=== PATIENT | female | born 1980 | race Caucasian/White ===

== ENCOUNTER 2016-08-17 14:57 | Emergency (ER) | payer MEDICAID ==
[~2016-08-17] VITALS: Ht 165.1 cm; Wt 73.0 kg
[2016-08-17 15:00] VITALS: Ht 165.1 cm; Wt 73.0 kg
[2016-08-17] MEDS ORDERED: KETOROLAC 60 MG INJ IM STA (15:58)
--- NOTE | 2016-08-17 17:18 | RADRPT ---
PROCEDURE: XR Chest. CLINICAL INDICATION: Chest pain. TECHNIQUE: Portable AP semi erect view of the chest was obtained. COMPARISON: None. FINDINGS: The cardiomediastinal silhouette is within normal limits. The lungs are clear. There is no evidenc e for pleural effusion, pneumothorax or pulmonary vascular congestion. The osseous structures are i ntact with no evidence for acute abnormality. RPTAT:HJJR IMPRESSION: No evidence for acute intrathoracic pathology. Physician Myah Date Time Electronically viewed and signed by Physician Myah on 08/17/2016 17:18 JR/
--- NOTE | 2016-08-17 17:19 | RADRPT ---
PROCEDURE: XR shoulder. CLINICAL INDICATION: Pain TECHNIQUE: Two views of the left shoulder were performed. COMPARISON: None available. FINDINGS: There is normal mineralization and alignment. No fracture or osseous lesion is identified. The joint spaces are preserved. The soft tissues are unremarkable. RPTAT:HJJR IMPRESSION: Unremarkable left shoulder series. Physician Myah Date Time Electronically viewed and signed by Preet Kline Physician on 08/17/2016 17:18 JR/
--- NOTE | 2016-08-17 19:30 | RADRPT ---
PROCEDURE: Ultrasound left breast CLINICAL INDICATION: Left breast pain TECHNIQUE: Real time sonographic imaging of the left breast is performed in an [id number] ma nner with additional images of the retroareolar and axillary regions of pain. Additional imaging of the right breast is obtained for comparison purposes, a total of 25 static images sent to the PACS for review COMPARISON: None available FINDINGS: Normal symmetric subcutaneous tissue and breast parenchyma is identified. There is no evidence of s olid or cystic mass. No fluid collections are seen. The axillary regions are unremarkable bilatera lly. RPTAT:HJJR IMPRESSION: 1. No abnormality identified to explain the patient's provided history. 2. ACR BIRADS category 1 (negative) 3. Recommendation: Any additional imaging should be based upon clinical assessment. Physician Myah Date Time Electronically viewed and signed by Physician Myah on 08/17/2016 19:30 /
[2016-08-17] MEDS ORDERED: IBUP-1542 PO (19:34)
--- NOTE | 2016-08-17 19:44 | ERD ---
ER Documentation Chief Complaint Date/Time DATE: 08/17/16 TIME: 19:35 Chief Complaint PAIN @ LEFT BREAST AREA HPI This is a 35-year-old female presents to the ER with left breast pain that radiates into her left chest wall and to her left shoulder and back. Pain started on Wednesday and has gotten significantly worse. Patient states that pain is worse whenever she touches the area. Pain is sharp and constant. Patient denies any trauma. She denies any numbness or tingling of her upper extremity. She denies any weakness to her upper extremity. Patient denies any fevers or chills. ROS 12 point review of systems was done, all negative except per HPI. Medications Home Meds Active Scripts Ibuprofen* (Motrin*) 600 Mg Tab, 600 MG PO Q6, #30 TAB Prov:BOWEN AVENDANO Shan 08/17/16 Allergies Allergies: Coded Allergies: No Known Drug Allergy (Verified Allergy, Unknown, 12/27/13) PMhx/Soc History of Surgery: No Anesthesia Reaction: No Hx Neurological Disorder: No Hx Alcohol Use: No Hx Substance Use: No Hx Tobacco Use: No Smoking Status: Never smoker Physical Exam Vitals Vital Signs Date Time Temp Pulse Resp B/P Pulse Ox O2 Delivery O2 Flow Rate FiO2 08/17/16 15:00 97.6 85 18 145/77 99 Physical Exam \GENERAL: The patient is well developed and appropriate for usual state of health, in no apparent distress. HEENT: Atraumatic. BREAST: symmetrical breasts, no skin changes, nipple discharge. left breast is extremely ttp however there is no erythema,warmth to the touch. CHEST: Clear to auscultation bilaterally. There are no rales, wheezes or rhonchi. left side of chest wall is TTP. HEART: Regular rate and rhythm. No murmurs, clicks, rubs or gallops.. EXTREMITIES:left shoulder: Patient has full ROM of her left shoulder, there is no crepitus, deformities or crepitus. negative drop arm test. +2 pulses NEURO: Alert and oriented. SKIN: The skin is warm and dry. Results 24 hrs Current Medications Medications (Trade) Dose Ordered Sig/Sudarshan Route PRN Reason Start Time Stop Time Status Last Admin Dose Admin Ketorolac Tromethamine (Toradol) 60 mg ONCE STAT IM 6/5/17 15:58 08/17/16 16:01 DC 08/17/16 16:22 Procedures/MDM Differential diagnosis includes but is not limited to; STEMI, dissection, pneumothorax, PE, esophageal rupture, tamponade, pneumonia, pericarditis, GERD, musculoskeletal, endocarditis, anxiety, mastitis, cellulitis, deep space infection. This is a 35-year-old female presents to the ER with left-sided breast pain that radiates throughout the left side of her chest wall and into her left shoulder. At this time this is likely chest wall pain as it is reproducible on physical examination. Patient is afebrile and well-appearing. I doubt abscess, cellulitis, mastitis, deep space infection. Suspicion for cardiac etiology is low. Patient has denied exertional chest pain or shortness of breath. EKG read by Dr. Martinez is [address] elevation or T-wave inversion. Patient does not have any PERC criteria. In regards to shoulder pain there is no evidence of trauma I doubt fracture dislocation. Patient will be sent home with ibuprofen. Needs to follow-up with her primary care doctor within 1-2 days or return to ER sooner if symptoms worsen. My medical decision making shared with the patient she understands and agrees with plan Departure Diagnosis: Primary Impression: Chest wall pain Condition: Stable Patient Instructions: Chest Wall Pain, Costochondritis Additional Instructions: Call your primary care doctor TOMORROW for an appointment during the next 1-2 days.See the doctor sooner or return here if your condition worsens before your appointment time. BOWEN AVENDANO Aug 17, 2016 19:44
[2016-08-17 19:50] VITALS: BP 121/76; PULSE 71; RESP 20; TEMP 98.5
== END 2016-08-17 19:51 | disposition home or self-care (01) ==
LOC: FTE 14:57
DX: R07.89 Other chest pain (principal)
CPT/HCPCS: 71010; 73030; 76642; 93005; 96372; J1885; Z7502